=== PATIENT | male | born 1975 | race Two or more races ===

== ENCOUNTER → 2024-07-01 | Emergency (ER) | payer OTHER ==
[~2024-07-01] VITALS: Ht 175.3 cm; Wt 104.3 kg
[~2024-07-01] MED LIST: LISINOPRIL2.5 MG; MEDROL4 MG PO; METFORMIN HCL500 M3; ZYRTEC10 MG PO
== END | disposition left against medical advice (07) ==
LOC: ER 09:26
DX: Z53.21 Procedure and treatment not carried out due to patient leaving prior to being seen by health care provider (principal)